=== PATIENT | female | born 1990 | race Asian ===

== ENCOUNTER 2018-03-25 06:37 | Inpatient (IN) | payer SELFPAY ==
[~2018-03-25] VITALS: Ht 165.1 cm; Wt 81.2 kg
[2018-03-25] MEDS ORDERED: OXYTOCIN/0.9 % SODIUM CHLORIDE 1,000 ML IV SCH (07:17)
[2018-03-25] MEDS ORDERED: LR 1,000 ML IV SCH (07:17)
[2018-03-25] MEDS ORDERED: NALBUPHINE HCL 10 MG/ML AMP IVP PRN (07:30)
[2018-03-25] MEDS ORDERED: DINOPROSTONE 10 MG SUPP VG ONE (07:30)
[2018-03-25 08:38] LABS: BASOPHILS % (AUTO) 0.5 % (0.0-2.0); EOSINOPHILS % (AUTO) 0.2 % (0.0-4.0); HEMATOCRIT 38.1 % (36-48); HEMOGLOBIN 12.6 g/dL (12.0-16.0); LYMPHOCYTES # (AUTO) 1.6 K/uL (1.0-5.5); LYMPHOCYTES % (AUTO) 33.3 % (20.5-51.5); MEAN CORPUSCULAR HEMOGLOBIN 29 pg (27-31); MEAN CORPUSCULAR HGB CONC 33 % (32-36); MEAN CORPUSCULAR VOLUME 89 fL (79.0-98.0); MONOCYTES # (AUTO) 0.3 K/uL (0.0-1.0); MONOCYTES % (AUTO) 6.5 % (1.7-9.3); NEUTROPHILS # (AUTO) 2.9 K/uL (1.8-7.7); NEUTROPHILS % (AUTO) 59.5 % (40.0-70.0); PLATELET COUNT (AUTO) 127 K/uL (130-430); RED BLOOD CELL COUNT(AUTO) 4.28 MIL/uL (4.2-6.2); RED CELL DISTRIBUTION WIDTH 12.4 % (9.0-15.0); WHITE BLOOD COUNT (AUTO) 4.8 K/uL (4.8-10.8)
[2018-03-25 10:56] VITALS: BP_SYST 122
[2018-03-25] MEDS ORDERED: fentaNYL CITRATE/PF 100 MCG/2 ML AMP ONE (14:35)
[2018-03-25] MEDS ORDERED: ROPIVACAINE 0.2% 100 ML ONE (14:35)
[2018-03-25] MEDS ORDERED: FENT2mCg/mL-ROPIVA0.2%/NS EPID 150 ML EP SCH (14:35)
[2018-03-26] MEDS ORDERED: OXYTOCIN/0.9 % SODIUM CHLORIDE 1,000 ML IV SCH (01:03)
[2018-03-26] MEDS ORDERED: OXYTOCIN/0.9 % SODIUM CHLORIDE 1,000 ML IV ONE (01:03)
[2018-03-26] MEDS ORDERED: OXYCODONE/ACETAMINOPHEN 5-325 TABLET PO PRN ×2 (01:15)
[2018-03-26] MEDS ORDERED: DIPH-TET-PERTUS Vaccine 0.5 ML VIAL (ADACEL) I.M. PRN (01:15)
[2018-03-26] MEDS ORDERED: MEASLES,MUMPS&RUBELLA VACC/PF 12500 UNIT/0.5 ML VIAL SUBQ PRN (01:15)
[2018-03-26] MEDS ORDERED: LANOLIN 7 GM OINT. TP PRN (01:15)
[2018-03-26] MEDS ORDERED: RHO(D) IMMUNE GLOBULIN/MALTOSE 1500 UNITS/1.3 ML (WINHRO) IM PRN (01:15)
[2018-03-26] MEDS ORDERED: ANUSOL 1 EA SUPP.RECT (PREPARATION H) RC PRN (01:15)
[2018-03-26] MEDS ORDERED: WITCH HAZEL LEAF 1 MED.PAD MED.PAD TP PRN (01:15)
[2018-03-26] MEDS ORDERED: HYDROCORTISONE 0.5%, 28.35 GM TOPICAL CREAM TP PRN (01:15)
[2018-03-26] MEDS ORDERED: SENNOSIDES/DOCUSATE SODIUM 1 TAB TABLET(SENOKOT-S) PO PRN (01:15)
[2018-03-26] MEDS ORDERED: DERMOPLAST SPRAY TP PRN (01:15)
[2018-03-26] MEDS: DOCUSATE SODIUM 100 MG CAPSULE PO PRN (05:37)
[2018-03-26] MEDS: IBUPROFEN 600 MG TABLET PO SCH ×3 (05:38→17:29)
[2018-03-26] MEDS ORDERED: MINERAL OIL 30 ML UDC ONE (07:25)
[2018-03-26 07:50] LABS: BASOPHILS % (AUTO) 0.1 % (0.0-2.0); HEMATOCRIT 31.5 % (36-48); HEMOGLOBIN 10.6 g/dL (12.0-16.0); LYMPHOCYTES # (AUTO) 1.2 K/uL (1.0-5.5); LYMPHOCYTES % (AUTO) 11.5 % (20.5-51.5); MEAN CORPUSCULAR HEMOGLOBIN 30 pg (27-31); MEAN CORPUSCULAR HGB CONC 34 % (32-36); MEAN CORPUSCULAR VOLUME 89 fL (79.0-98.0); MONOCYTES # (AUTO) 0.5 K/uL (0.0-1.0); MONOCYTES % (AUTO) 4.2 % (1.7-9.3); NEUTROPHILS # (AUTO) 9.2 K/uL (1.8-7.7); NEUTROPHILS % (AUTO) 84.2 % (40.0-70.0); PLATELET COUNT (AUTO) 112 K/uL (130-430); RED BLOOD CELL COUNT(AUTO) 3.55 MIL/uL (4.2-6.2); RED CELL DISTRIBUTION WIDTH 12.5 % (9.0-15.0)
[2018-03-26 08:26] LABS: WHITE BLOOD COUNT (AUTO) 10.9 K/uL (4.8-10.8)
[2018-03-27] MEDS: IBUPROFEN 600 MG TABLET PO SCH (05:22)
[2018-03-27] MEDS: DOCUSATE SODIUM 100 MG CAPSULE PO PRN (09:37)
== END 2018-03-27 10:30 | disposition home or self-care (01) | DRG 805 ==
LOC: SPU 06:37
PROVIDERS: ADMIT Obstetrics & Gynecology; ATTEND Obstetrics & Gynecology
PROC: 10E0XZZ Delivery of Products of Conception, External Approach (ICD-10-PCS; principal; 2018-03-26)
PROC: 0W8NXZZ Division of Female Perineum, External Approach (ICD-10-PCS; 2018-03-26)
PROC: 3E0R3BZ Introduction of Anesthetic Agent into Spinal Canal, Percutaneous Approach (ICD-10-PCS; 2018-03-26)
PROC: 00HU33Z Insertion of Infusion Device into Spinal Canal, Percutaneous Approach (ICD-10-PCS; 2018-03-26)
PROC: 3E0P7VZ Introduction of Hormone into Female Reproductive, Via Natural or Artificial Opening (ICD-10-PCS; 2018-03-26)
DX: O48.0 Post-term pregnancy (principal); O45.93 Premature separation of placenta, unspecified, third trimester; Z37.0 Single live birth; Z3A.40 40 weeks gestation of pregnancy
CPT/HCPCS: 36415; 81002-TC; 85025; 85384-TC; 86886; 86900; 86901; 94760; J2300; J2590; J2795; J3010; J7120